=== PATIENT | male | born 1965 | race Caucasian/White ===

== ENCOUNTER 2018-11-08 05:28 | Inpatient (IN) | payer BC, OTHER ==
[~2018-11-08] VITALS: Ht 165.1 cm; Wt 82.1 kg
[~2018-11-08 05:28] MED LIST: CENTRUM SILVER1 EAC2 PO
[2018-11-08 08:44] LABS: HEMATOCRIT 47.4 % (42.0-52.0); HEMOGLOBIN 16.2 gm/dL (14.0-18.0)
[2018-11-08 09:34] VITALS: BP 115/68
--- NOTE | 2018-11-08 13:11 | H ---
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 HISTORY OF PRESENT ILLNESS: The patient is a 52-year-old who had a ruptured appendix on 07/31/2018. The patient underwent laparoscopic appendectomy. He did have a contained abscess. 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 The patient's proximal margin was not involved with carcinoid. The tumor did invade the serosal peritoneum. The size was difficult to determine because the appendix was ruptured. The tumor was found in the proximal, mid and distal half of the appendix. The patient did have issue with a partial small-bowel obstruction as a consequence of the ruptured appendix. The patient did have NG for decompression and his obstruction did resolve nonoperatively. The patient has recovered fully from that surgery and patient was sent to see oncologist, Dr. Young, who evaluated the patient for the goblet cell carcinoid and recommended that the patient undergo a right colectomy to prevent recurrence. The patient did have a colonoscopy with Dr. Young recently and the colonoscopy was normal. A random biopsy of the appendiceal orifice area was negative for any tumor. The patient is now brought in for right colectomy with laparoscopic approach. Procedure was discussed and the patient wished to proceed. PAST MEDICAL HISTORY: The patient is healthy. Denies heart disease, denies diabetes, denies high blood pressure, denies bleeding disorder, denies any history of lung disease, liver disease or kidney disease. No history of blood clot. FAMILY HISTORY: Father had lung cancer. PAST SURGICAL HISTORY: The only surgery is the above-mentioned laparoscopic appendectomy. MEDICATIONS: Vitamins only. ALLERGIES: None. SOCIAL HISTORY: The patient works at [employer]. He does not smoke. He quit many years ago. Does not drink. [facility] [address] [place] [address] HISTORY AND PHYSICAL Name: KELLIE MONET Room #: 150-7 [facility].#: [id number] Admission: 11/08/18 ������������������ Attend Phys: Henrique Vilchis MD Discharge: ������������������ Date of : 63 Report #: [id number] REVIEW OF SYSTEMS: Unremarkable. No chest pain, shortness of breath, palpitation. No flushing or diarrhea. PHYSICAL EXAMINATION: GENERAL: The patient is a well-nourished male in no acute distress. HEENT: Pupils react to light. Extraocular muscles are intact. Oropharynx is clear. NECK: Soft and supple, no masses. LUNGS: Clear to auscultation. HEART: Regular rate and rhythm. No murmur or gallop. ABDOMEN: Soft. His incisions have healed well. No tenderness, mass, guarding or rigidity. EXTREMITIES: No cyanosis, clubbing or edema. Motor function and sensory exams normal. IMPRESSION: The patient is a 52-year-old who had an appendectomy in July. Unfortunately, the patient was found to have carcinoid tumor. The appendix was ruptured about the mid part of the appendix. Carcinoid was found on the proximal, mid and distal part of the appendix distal half of the appendix. Difficult to measure the size that did involve the serosal peritoneum. The patient is here for right colectomy to remove the regional lymph nodes for analysis. Also, we will also dissect out the area where the appendix was located. The patient understands the procedure. The risks involved including injury to surrounding tissue including the right ureter and the duodenum was discussed. The risk of bleeding, infection was discussed. Risk of anastomotic leak was discussed. The patient understands the risks involved and wishes to proceed. The patient will be receiving preoperative IV antibiotics. ��������������������������������������������� <ELECTRONICALLY SIGNED> ���������������������������������������� By: Henrique Vilchis MD ��������������������������������������������� 11/08/18 1311 0656 [id number] Henrique Vilchis MD /samantha
[2018-11-08 15:24] VITALS: BP 140/76
--- NOTE | 2018-11-08 16:13 | EKG ---
[address] [address] ELECTROCARDIOGRAM REPORT Name: KELLIE MONET Room #: 457-P ADM IN M.R.#: [id number] ������������������ Admission: 11/08/18 ������������������ Attend Phys: Henrique Vilchis MD Discharge: ������������������ Date of : 63 Report #: [id number] ����������������������������������������������������������������� [id number] THIS REPORT FOR: //name// 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 : 1965 Requested By: Henrique Vilchis Order Number: [id number] MD: Segundo Denny Measurements Intervals [place] Rate: 69 P: 18 SD: 149 QRS: 0 QRSD: 83 T: 15 QT: 391 QTc: 419 Interpretive Statements Sinus rhythm RSR' in V1 or V2, right VCD or RVH No previous ECG available for comparison Electronically Signed On 11-08-2018 16:12:57 CDT by Segundo Denny [email or web address] ��������������������������������������������� <ELECTRONICALLY SIGNED> ���������������������������������������� By: Segundo Denny MD ��������������������������������������������� 11/08/18 1612 0842 1 Segundo Denny MD /CLOVER
[2018-11-08 16:48] LABS: HEMOGLOBIN 15.5 gm/dL (14.0-18.0); MCH 31.2 pg (26.0-34.0); MCHC 33.7 g/dL (28.0-37.0); MCV 92.4 fL (80.0-100.0); RBC 4.97 mil/uL (4.50-6.00); RDW 13.7 % (10.5-14.5); WBC 14.9 thou/uL (4.0-11.0)
--- NOTE | 2018-11-08 16:55 | NUR ---
Admitted patient on the floor from operating room at 1500 via bed, accompanied by 2 OR staff, patient transferred to room safely. Dr. Vilchis's office called up to inform that patient is admitted in 4W, patient's VS stable, no complains of pain. Admission care rendered. Incision site checked at abdomen- dry, intact and clean. A+Ox4. On NPO except medications with sips of water- instructed patient, mouth swabs given for moisture. Patient with SL at Left FA, order of IVF started, requested IVF from pharmacy. Relative at bedside. SCDs applied. Med rec done- taking only Vitamins as verbalized by the patient.
[2018-11-08 17:18] LABS: CALCIUM 8.4 mg/dL (8.5-10.1); CREATININE 1.2 mg/dL (0.7-1.3); POTASSIUM 4.3 mmol/L (3.5-5.1)
[2018-11-08 21:22] VITALS: BP 138/63
[2018-11-09 05:36] VITALS: BP 132/72
[2018-11-09 05:43] LABS: HEMOGLOBIN 14.3 gm/dL (14.0-18.0); MCH 31.7 pg (26.0-34.0); MCV 93.2 fL (80.0-100.0); RBC 4.51 mil/uL (4.50-6.00); RDW 13.4 % (10.5-14.5); WBC 12.2 thou/uL (4.0-11.0)
[2018-11-09 05:51] LABS: POTASSIUM 4.1 mmol/L (3.5-5.1)
--- NOTE | 2018-11-09 06:25 | NUR ---
Assumed care at 1845. Pt resting in bed. AOX4. VSS. Gave pain medication one time. Only has pain with movement. Called got permission to insert meeks after bladder scan showed 490cc. Pt still NPO on exception of meds. No identified needs at the moment. Call light within reach. Will continue to monitor.
[2018-11-09 08:32] VITALS: BP 114/67
[2018-11-09 13:34] VITALS: BP 133/75
--- NOTE | 2018-11-09 14:04 | NUR ---
PT ADMITTED RELATED TO LAP COLON RESECTION. CM REVIEWED CHART AND SPOKE WITH CARE TEAM. CM MET WITH PT AT BEDSIDE THIS DAY. PT IS A&O X4. CM ROLE INTRODCUED. PT INDICATED HE LIVES IN A HOUSE WITH HIS SPOUSE WITH 1 STEP TO ENTER AND 20 STEPS INSIDE. 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 PT INDICATED NO DME OR HH HX. PT INDICATED HE HOPES TO RETURN HOME ONCE MEDICALLY STABLE. CM TO FOLLOW INDICATED WITH DC PLANNING.
[2018-11-09 19:07] VITALS: BP 108/61
--- NOTE | 2018-11-09 19:37 | NUR ---
ASSUMED CARE OF PATIENT AT 0715, PATIENT ALERT AND ORIENTED X 4. PATIENT ON BEDREST THIS AM. PATIENT NPO THIS AM. PATIENT C/O PAIN WITH ABDOMEN AREA, BUT REFUSES PAIN MEDS THIS AM. DR JUAN HERE THIS AFTERNOON, DIET UPGRADED TO CLEAR LIQUIDS, RECEIVED ORDER TO CLAMP CAMACHO X 4 HOURS TO RETRAIN BLADDER, PATIENT STARTED ON FLOMAX THIS AFTERNOON, ALSO ORDERED AMBULATE TID. PATIENT AMBULATED 2 TIMES THIS SHIFT, WILL AMBULATE LATER TONIGHT. PATIENT RECEIVED FENTANYL 50 MCG X 1 THIS SHIFT WITH GOOD RELIEF. PATIENT HAS 3 LAP SITES, WITH 4X4 TO RIGHT UPPER ABDOMEN C/D/I. PATIENT HAS 2 IV'S LEFT HAND AND LEFT FOREARM, WITH D5NS WITH 10 KCL AT 100CC/HR. WILL CONTINUE TO MONITOR.
--- NOTE | 2018-11-10 02:12 | NUR ---
ASSUMED CARE AROUND 1900. AXOX4. ABD LAP SITES AND RUQ DRESSING DCI. NO S/S ACUTE DISTRESS NOTED OR REPORTED AT THIS TIME. WILL CONT TO MONITOR FOR ANY CHANGES IN CONDITION.
[2018-11-10 04:10] VITALS: BP 103/56
[2018-11-10 04:34] LABS: HEMATOCRIT 40.3 % (42.0-52.0); HEMOGLOBIN 13.6 gm/dL (14.0-18.0); MCH 31.5 pg (26.0-34.0); MCHC 33.7 g/dL (28.0-37.0); MCV 93.3 fL (80.0-100.0); RBC 4.32 mil/uL (4.50-6.00); RDW 13.4 % (10.5-14.5); WBC 8.8 thou/uL (4.0-11.0)
[2018-11-10 04:52] LABS: CREATININE 0.9 mg/dL (0.7-1.3); POTASSIUM 3.8 mmol/L (3.5-5.1)
[2018-11-10 08:00] VITALS: BP 116/75
[2018-11-10 15:00] VITALS: BP 125/68
--- NOTE | 2018-11-10 15:53 | NUR ---
CARE TEAM INDICATED THAT PT WILL DC HOME ONCE HE IS VOIDING WEEL AND TOLERATING DIET. NO CM INTERVENTIONS ARE ANTICPATED. CM ABLE TO FOLLOW UP SHOULD ANY ARISE.
--- NOTE | 2018-11-10 16:15 | O ---
[facility] [address] [place] [address] OPERATIVE REPORT Name: KELLIE MONET Room #: 457-P [facility] IN M.R.#: [id number] Admission: 11/08/18 ������������������ Attend Phys: Henrique Vilchis MD Discharge: ������������������ Date of : 63 Report #: [id number] THIS REPORT FOR: //name// CC: BERNADETTE Vilchis Physician staff DATE OF SERVICE: 11/08/2018 PREOPERATIVE DIAGNOSIS: Carcinoid of the appendix, status post ruptured appendicitis, here for right colectomy. POSTOPERATIVE DIAGNOSIS: Carcinoid of the appendix, status post ruptured appendicitis, here for right colectomy. PROCEDURES PERFORMED: Laparoscopic-assisted right colectomy. ANESTHESIA: General. SURGEON: Henrique Vilchis MD. COMPLICATIONS: None. ESTIMATED BLOOD LOSS: 40 mL. PROCEDURE NOTE: With the patient under general anesthesia, abdomen was prepped and draped in sterile fashion. The patient received IV antibiotics. Timeout was performed. A curvilinear incision was made above the umbilicus after anesthetizing the skin and subcutaneous tissue. A 2 cm incision was made. Fascia was identified. Fascia was then opened under visualization. 0 Vicryl suture placed on the fascia for retraction. Veress needle was then placed through the peritoneum. Abdominal cavity was insufflated with CO2 without difficulty. After creating pneumoperitoneum pressure of 15, 11 mm trocar was placed through the peritoneum under visualization. No harm to the underlying tissue. There was no adhesion in this mid abdominal area. A 5 mm trocar was placed in the epigastrium. A second 5 mm trocar was placed about 2 inches below the umbilicus. His old incision was used from his laparoscopic appendectomy. Liver appeared normal. Gallbladder is visualized and normal. I do not see any carcinoid involving the liver. There is a small bowel adhesion over the area of the cecum and right colon. This adhesion was small bowel and this adhesion was divided with sharp dissection and a low cautery setting. The adhesion was freed without difficulty. The patient's right colon and cecum were then visualized. The terminal ileum was then visualized. The initial bowel that was free from the adhesion was not the terminal ileum. The area lateral to the terminal ileum was where the appendix sat. I went ahead and removed the peritoneum in this area to ensure that where the appendix was located is resected and removed just [address] [address] OPERATIVE REPORT Name: KELLIE MONET Room #: 457-P [facility] IN .R.#: [id number] Admission: 11/08/18 ������������������ Attend Phys: Henrique Vilchis MD Discharge: ������������������ Date of : 63 Report #: [id number] in case there was any seeding into the peritoneal area. This was performed without difficulty. The right colon was then mobilized easily. The colon was detached from its peritoneal reflection and then rotated medially. The hepatic flexure was also free without difficulty. The proximal transverse colon was able to be rotated inferomedially. The duodenum was visualized laparoscopically and preserved from harm. The small bowel more proximal to the terminal ileum was attached to the peritoneum more inferiorly. This was hard to visualize with flipping the terminal ileum medially. I decided to go ahead and divide the mesentery of the terminal ileum and then this was performed without difficulty. Two vessels were identified in the mesentery. This was clipped x 2 with a 5 mm clip fruit loader and then divided with Harmonic scissor. This allowed a view into the lateral portion where the terminal ileum is attached to the peritoneum. With the view through the mesentery, I was able to free the rest of the small bowel away from the pelvic brim. Small bowel was then completely freed up. Where the carcinoid sat, the peritoneum also, I can see from this approach that it is well dissected and removed with the specimen. A transverse incision was made slightly above the umbilicus. Incision is about 6 cm. Incising through the skin and subcutaneous tissue, the anterior rectus fascia was incised and part of the lateral oblique muscle and fascia was also incised. The rectus muscle was partially divided with cautery. Posterior layer was opened. Dissection carried laterally into the oblique muscle and there is a nerve sitting right here, then I stopped the dissection to not hurt that nerve. Posterior sheath was opened up. Abdominal cavity was entered. Small bowel was brought up. The small bowel was divided with a DEIRDRE after freeing the antimesenteric surface of the small bowel. The rest of the mesentery of small bowel was dissected to join the previous opened window in the mesentery that I performed laparoscopically. A 3-0 Vicryl suture placed on the corner of the small bowel, so it could be found later easily. The stitch was left long and a clamp was placed on the stitch. Small bowel was returned. The colon was then brought up. The mesentery of the colon was then divided. The view of the mesentery was diminished due to the fat thickness of the mesentery in the bowel. About an inch and a half rim of mesentery was left on the ascending along the cecum and ascending colon. The distal line of resection was then isolated. Another Endo-DEIRDRE with a blue staple was used to divide the colon in the proximal part of the transverse colon. Specimen was then given to the pathologist. Pathologist was called in and the path report from his prior appendectomy was given to her. She did open the bowel and did not see any evidence of gross tumor. There is no gross evidence in the specimen of any carcinoid tumor. Approximately 3 inches of the small bowel was resected along with the cecum, ascending colon. The small bowel was then brought back out into the wound. The small bowel was lined up with the colon. A 3-0 Vicryl suture was used to line up the small bowel and the colon. Corner of the staple line was removed with Son scissors. The small part of the DEIRDRE was placed in the small bowel. The larger part was placed through the colon. The DEIRDRE was brought together. The bowel was aligned well. GI was then deployed forming a pqcx-fx-zube anastomosis. The enterotomy was then brought together with multiple [facility] [address] [place] [address] OPERATIVE REPORT Name: KELLIE MONET Room #: 457-P [facility] IN ..#: [id number] Admission: 11/08/18 ������������������ Attend Phys: Henrique Vilchis MD Discharge: ������������������ Date of : 63 Report #: [id number] clamps and a TA60 was then used to staple the enterotomy underneath the Allis clamps. Son scissors was used to cut off the excess bowel that was external to the staple line. Once this piece was trimmed off, the staple was opened. Well-formed staple line was seen. Small area of bleeding from the staple line was cauterized and hemostasis obtained. The bowel was then returned to the abdominal cavity. The fascia was then closed at the small incision site. The posterior sheath and the lateral internal oblique fascia was closed with 0 PDS in running fashion. The anterior rectus sheath in the external oblique fascia was closed with 0 PDS in running fashion. Moistened gauze was placed in the wound. The laparoscope was then replaced. Insufflation was then restarted. The scope was placed in. Irrigation was performed. The anastomosis was visualized. The bowel coming into the anastomosis was also visualized and there is no kink in the small bowel as it joined the dsjx-eo-cwnt functional end-to-end anastomosis. The omentum was then placed over the anastomosis. Irrigation was aspirated out. Trocars then removed. CO2 was evacuated as much as possible. The fascia defect above the umbilicus closed with qvaope-ao-vsvuc 0 Vicryl x 2. Skin was irrigated. The laparoscopic port site, the large 11 mm port site and the incisions for the colectomy was closed with 4-0 PDS. The two 5 mm trocar site was closed with 5-0 PDS. Steri-Strip, Band-Aids were applied to the laparoscopic trocar, 4 x 4 OpSite was placed over the small incision site. The patient tolerated the procedure well and was taken to recovery room. ��������������������������������������������� <ELECTRONICALLY SIGNED> ���������������������������������������� By: Henrique Vilchis MD ��������������������������������������������� 11/10/18 1615 09 47 Henrique Vilchis MD /nt
--- NOTE | 2018-11-10 17:38 | NUR ---
PT VS STABLE TRHOUGHOUT SHIFT. PT'S CAMACHO REMOVED AT 14:30, PT ABLE TO VOID INDEPENDENTLY AFTERWARDS. PT AMBULATED SEVERAL TIMES TODAY, PAIN DECREASED CONSIDERABLY FROM YESTERDAY. TOLERATED CLEAR LIQUID DIET TODAY AND ADVANCED TO FULL LIQUIDS DIET FOR DINNER. PT RESTING COMFORTABLY.
[2018-11-10 19:49] VITALS: BP 114/72
--- NOTE | 2018-11-11 03:12 | NUR ---
ASSUMED CARE AROUND 1900. AXOX4. STABLE GAIT. ABD BANDAGES AND DRESSING RUQ C,D,I. NO S/S ACUTE DISTRESS NOTED OR REPORTED AT THIS TIME. WILL CONT TO MONITOR FOR ANY CHANGES IN CONDITION.
[2018-11-11 05:11] VITALS: BP 133/74
[2018-11-11 08:31] VITALS: BP 124/75
[2018-11-11] MEDS ORDERED: HYDROCODONE-AP1 EAC6 PO (12:23)
[2018-11-11 12:42] VITALS: BP 124/75
--- NOTE | 2018-11-11 12:54 | NUR ---
PT VS STABLE THIS MORNING. PT CONTINUES TO TOLERATE PO FOOD AND AMBUALTION. PT DISCHARGED HOME, GIVEN DC INSTRUCTIONS AND RX. PT LEFT UNIT TO PRIVATE VEHICLE.
--- NOTE | 2018-11-13 13:06 | PATH ---
[facility] [place] [address] PATHOLOGY RPT PROCEDURE Name: KB PEÑA Sylwia Room #: 457-P [facility] IN M.R.#: [id number] ������������������ Admission: 11/08/18 ������������������ Date of : 63 Discharge: 11/11/18 Report #: [id number] Path Case #: [id number] [facility] Accession Number: [id number] . 01 Material submitted: . colon - RIGHT COLON. Modifiers: right . 01 Clinician provided ICD-10: C7A.020 . 01 Clinical history: . Appendiceal goblet cell carcinoid . 01 Frozen section diagnosis: . INTRAOPERATIVE GROSS DESCRIPTION: Specimen received fresh labeled with "Kb Peña", consists of a segment of small bowel, cecum, and ascending colon, labeled right colon. . . INTRAOPERATIVE CONSULT DIAGNOSIS: (Matheus Pringle MD) . Segment of small intestine, cecum, and ascending colon: - No gross tumor is seen and all margins are free. (SHA:steffany; 11/08/2018) . INTRAOPERATIVE COMMENT: Dr. Vilchis indicated that the patient has a goblet cell carcinoid and appendectomy that was removed at [facility] on 08/02/2018. The appendiceal margins were free. He indicated that there were a few adhesions at the site of previous surgery. . The findings were discussed with Dr. Henrique Vilchis and a written report was placed in the chart. . Intraoperative consultation performed at [facility], [address] [facility] , [place] [address]. /QMS . 02 Diagnosis: Terminal ileum, cecum and ascending colon, right hemicolectomy: - No residual malignancy present. - Margins of resection widely free of malignancy; 6.5 cm of terminal ileum and 13.5 cm of ascending colon. - Thirteen reactive lymph nodes; negative for malignancy (0/13). 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 02 Comment: Sections of the appendiceal orifice show no residual evidence of malignancy. The provided report prepared at [facility], specimen number [id number] shows a goblet cell carcinoid diffusely involving the appendix (please see separate report for details). That tumor was staged as pT4a, pNx. Per the report, the tumor invaded into the visceral peritoneum. The proximal margin was uninvolved by invasive carcinoma. Due to the lack of any malignancy within the current specimen, a synoptic report is not assembled. The pathologic stage classification is now updated to pT4a, pN0 and pMx in lieu of the findings of that report. 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 02 Electronically signed: . Johana Thomas MD, Pathologist NPI- [id number] . 01 Gross description: . The specimen is received in formalin, labeled "Justinro Kb, right colon" and consists of a previously opened right hemicolectomy with terminal ileum (6.5 cm in length and 1.7 cm in diameter), ascending colon (13.5 cm in length and up to 4.5 cm in diameter), and mesocolic tissue (up to 5.5 cm). The appendix is absent. Both margins are closed with benji. The terminal ileum mucosa is green-kerns with no masses or lesions. The cecum and ascending colon shows a pink-kerns mucosa with no masses or lesions. The ileocecal valve shows mild adiposity. The appendectomy site is inked black and the specimen is allowed overnight fixation. (SDY; 11/08/2018) . After additional fixation sectioning through the appendiceal orifice is difficult due to multiple remaining benji however no gross lesions are identified. The paracolic fat reveals multiple lymph node candidates ranging from 0.2 cm to 0.9 cm. Process Checker sections are submitted as follows: . A1: Proximal margin A2: Distal margin A3-A5: Appendiceal orifice A6: Adiposity of ileocecal valve A7: Unremarkable bowel and colon A8: 5 intact lymph node candidates A9: 2 bisected lymph node candidates, one inked black A10: 2 lymph node candidates (SDY; 11/09/2018) . The pericolic tissue is further enhanced with lymph node solution to [address] [address] PATHOLOGY RPT PROCEDURE Name: KB PEÑA Room #: 457-P [facility] IN M.R.#: [id number] ������������������ Admission: 11/08/18 ������������������ Date of : 63 Discharge: 11/11/18 Report #: [id number] Path Case #: [id number] reveal 5-6 additional lymph node candidates ranging from 0.2-0.5 cm. These candidates are submitted intact in A11. Additional pericolic tissue is submitted in A12-A15 for further lymph node identification. (SDY; 11/10/2018) SYU/SYU . 02 Pathologist provided ICD-10: C7A.020 . 02 CPT . 255045, [id number] Specimen Comment: A courtesy copy of this report has been sent to Specimen Comment: [phone]. Specimen Comment: Report sent to Performed at: [address] [facility] [address], [place], [place] [id number] MD Armin Bueno MD Phone: [phone] Performed at: [address] [facility] [address] [id number] MD Johana Thomas MD Phone: [phone]
== END 2018-11-11 13:56 | disposition home or self-care (01) | DRG 329 ==
LOC: OR 05:28 → TBA 05:28 → PRE 09:47 → EDSTATUS 09:47 → OR 12:02 → 4W 14:48 → EDSTATUS 15:34 → OR 15:39 → 4W 11-11 13:56
PROVIDERS: ADMIT Surgery
PROC: 0DTF4ZZ Resection of Right Large Intestine, Percutaneous Endoscopic Approach (ICD-10-PCS; principal; 2018-11-08)
DX: C7A.020 Malignant carcinoid tumor of the appendix (principal); K35.32 Acute appendicitis with perforation, localized peritonitis, and gangrene, without abscess; R33.9 Retention of urine, unspecified; F17.200 Nicotine dependence, unspecified, uncomplicated; Z79.899 Other long term (current) drug therapy
CPT/HCPCS: 10047; 50010; 50101; 50249; 50411; 50555; 50558; 51390; 51391; 51435; 51489; 53307; 53310; 53335; 55245; 56462; 56524; 56525; 56526; 56527; 56528; 62110; 62900; 70005